=== PATIENT | female | born 1990 | race Caucasian/White ===

== ENCOUNTER 2018-06-18 16:09 | Emergency (ER) | payer OTHER, MEDICAID ==
[~2018-06-18] VITALS: Ht 162.6 cm; Wt 99.8 kg
[~2018-06-18 16:09] MED LIST: ACETAMINOPHEN-1 EAC1 PO; AMOXICILLIN500 M1 PO; AUGMENTIN 875-1 EACH PO; BIRTH CONTROL PO; CELEXA20 MG PO; CLEOCIN HCL300 MG PO; FLEXERIL PO; IBUPROFEN 800800 M1 PO; LATUDA60 MG PO; LITHIUM CARBON150 MG PO; MEDROLDOSEPACK PO; MICROGESTIN1 EAC1; Magic Mouthwash PO; NORCO 5-325 TA1 EACH PO; PENICILLIN V P500 MG PO; PROVENTIL HFA6.7 G1 INH; RONDEC-DM SYRU120 ML PO; TRAZODONE HCL50 MG PO; VENTOLIN HFA 1818 GM INH
[2018-06-18] MEDS ORDERED: TYLENOL325 MG PO (16:17)
[2018-06-18] MEDS ORDERED: ZOLOFT25 MG PO (16:17)
[2018-06-18] MEDS ORDERED: IBUPROFEN 600600 M1 PO (16:17)
[2018-06-18 17:26] LABS: ABSOLUTE BASOPHILS 0.1 thou/uL (0.0-0.2); ABSOLUTE EOSINOPHILS 0.2 thou/uL (0.0-0.7); ABSOLUTE LYMPHOCYTES 3.1 thou/uL (0.8-5.3); ABSOLUTE MONOCYTES 0.5 thou/uL (0.0-1.2); ABSOLUTE NEUTROPHILS 4.9 thou/uL (1.6-8.1); BASOPHILS 1.3 %; EOSINOPHILS 2.2 %; HEMATOCRIT 41.3 % (37.0-47.0); HEMOGLOBIN 14.2 gm/dL (12.0-15.0); LYMPHOCYTES 35.1 %; MCH 33.1 pg (26.0-34.0); MCHC 34.4 g/dL (28.0-37.0); MCV 96.3 fL (80.0-100.0); MONOCYTES 6.1 %; MPV 6.8 fl. (7.2-11.1); NUCLEATED RBCS 0 /100WBC; PLATELET COUNT* 230 thou/uL (150-400); POLYS 55.3 %; RBC 4.29 mil/uL (4.20-5.00); RDW-CV 12.3 % (10.5-14.5); WBC 8.9 thou/uL (4.0-11.0)
[2018-06-18 17:33] LABS: ANION GAP 8 mmol/L (7-16); BUN 11 mg/dL (7-18); CALCIUM 8.8 mg/dL (8.5-10.1); CHLORIDE 105 mmol/L (98-107); CO2 27 mmol/L (21-32); CREATININE 0.8 mg/dL (0.6-1.3); GLUCOSE 75 mg/dL (70-99); POTASSIUM 3.7 mmol/L (3.5-5.1); SODIUM 140 mmol/L (136-145)
[2018-06-18 17:40] LABS: ALBUMIN 3.9 g/dL (3.4-5.0); ALKALINE PHOSPHATASE 57 U/L (46-116); LIPASE 313 U/L (73-393); SGOT 16 U/L (15-37); SGPT 26 U/L (30-65); TOTAL PROTEIN 7.6 g/dL (6.4-8.2); TROPONIN-I LEVEL <0.06 ng/mL (<0.06)
[2018-06-18] MEDS ORDERED: OMEPRAZOLE40 MG PO (18:09)
[2018-06-18 18:18] VITALS: BP 114/58
--- NOTE | 2018-06-19 17:01 | EKG ---
[place] [address] ELECTROCARDIOGRAM REPORT Name: ELEONORA GLYNN Room: [facility]#: [id number] Admission: 06/18/18 Attend Phys: Discharge: 06/18/18 Date of : 86 Report #: [id number] THIS REPORT FOR: //name// [place] [facility] Test Date: 2018-06-18 Test Time: 16:14:07 Pat Name: ELEONORA GLYNN Department: Room: Gender: F [employer]: SAUD : 1990 Requested By: Francisco Finnegan Order Number: [id number] MD: Boaz Vizcarra Measurements Intervals [place] Rate: 91 P: 64 SC: 136 QRS: 52 QRSD: 90 T: -10 QT: 352 QTc: 434 Interpretive Statements Sinus rhythm Probable left atrial enlargement Low voltage, extremity and precordial leads Minimal ST depression, inferior leads Baseline wander in lead(s) V1,V3,V4,V5,V6 No previous ECG available for comparison Electronically Signed On 06-19-2018 17:01:37 CDT by Boaz Vizcarra [email or web address] <ELECTRONICALLY SIGNED> By: Boaz Vizcarra MD, [facility] 06/19/18 1701 1614 1614 Boaz Vizcarra MD, [facility] /EPI
== END 2018-06-18 18:19 | disposition home or self-care (01) ==
LOC: M.ERS 16:09
PROVIDERS: Nurse Practitioner Family
DX: R07.89 Other chest pain (principal); J45.909 Unspecified asthma, uncomplicated; F31.9 Bipolar disorder, unspecified; F17.210 Nicotine dependence, cigarettes, uncomplicated; Z88.2 Allergy status to sulfonamides; Z88.1 Allergy status to other antibiotic agents